=== PATIENT | female | born 1995 ===

== ENCOUNTER 2021-11-09 09:37 | Outpatient (CLI) | payer MEDICAID, SELFPAY ==
--- NOTE | 2021-11-09 09:45 | CRLHL7_ITS ---
For Patients: As a result of the Cures Act, medical imaging exams and procedure reports are released immediately into your electronic medical record. You may view this report before your referring provider. If you have questions, please contact your health care provider. DIGITAL DIAGNOSTIC RIGHT MAMMOGRAM USING TOMOSYNTHESIS AND COMPUTER-AIDED DETECTION, 11/09/2021 RIGHT BREAST ULTRASOUND, 11/09/2021 CLINICAL HISTORY: RIGHT breast skin changes. COMPARISON: Outside exam 07/20/2021. TECHNIQUE: Digital RIGHT mammogram in two projections. Tomosynthesis and CAD utilized. Real-time ultrasound imaging of RIGHT breast with imaging documentation. BREAST COMPOSITION: There are areas of scattered fibroglandular density. FINDINGS: 3D CC/MLO mammograms RIGHT breast submitted. Normal fibroglandular tissue. No suspicious masses or architectural distortion. No adenopathy or suspicious calcifications. Targeted RIGHT breast ultrasound performed in the area of concern, medial aspect RIGHT breast, 2-4 o`clock 6 cm from the nipple. Normal breast tissue is present. No fibrocystic change or mass. Ultrasound of the RIGHT axilla also performed. No adenopathy. Normal compressibility of the RIGHT axillary vein. IMPRESSION: Normal RIGHT breast mammograms and RIGHT breast ultrasound. RECOMMENDATIONS: Clinical follow-up. Results and recommendations discussed with the patient. BI-RADS Category 1: Negative A lay language report of this examination will be provided to the patient. Dictated by Chaitanya Coburn MD @ 11/09/2021 11:25:08 AM jj/Dictated by: Chaitanya Coburn MD @ 11/09/2021 11:25:00 AM (Electronically Signed)
--- NOTE | 2021-11-09 10:15 | CRLHL7_ITS ---
For Patients: As a result of the Cures Act, medical imaging exams and procedure reports are released immediately into your electronic medical record. You may view this report before your referring provider. If you have questions, please contact your health care provider. PLEASE SEE DIGITAL DIAGNOSTIC RIGHT MAMMOGRAM PERFORMED SAME DAY CRL:[email or web address]/Dictated by: Chaitanya Coburn MD @ 11/09/2021 11:25:00 AM (Electronically Signed)
== END 2021-11-09 09:38 | disposition home or self-care (01) ==
LOC: MAMMO 09:38
PROVIDERS: Visit Provider Surgery
DX: N64.59 Other signs and symptoms in breast (principal)
CPT/HCPCS: 76642; 77065; G0279